=== PATIENT | male | born 1990 | race Caucasian/White ===

== ENCOUNTER → 2017-02-14 | Day surgery (SDC) | payer OTHER ==
--- NOTE | 2017-02-12 14:19 | MH ---
cc: THOMAS UGPTA M.D. DATE OF ADMISSION: 02/14/2017 DATE OF : 1990 CHIEF COMPLAINT Tonsil and adenoid hypertrophy. HISTORY OF PRESENT ILLNESS This is a 27-year-old male with a history of tonsil and adenoid hypertrophy. He has obstructive symptoms of sleep apnea. In office evaluation he had significant adenoid hypertrophy and very large tonsils and this has caused him obstruction. He has not improved with steroids and antibiotics. He is to undergo tonsillectomy and adenoidectomy. ALLERGIES No known drug allergies. PAST MEDICAL HISTORY 1. Chronic sinusitis. 2. Chronic tonsillitis. PHYSICAL EXAMINATION GENERAL: A well-developed, well-nourished male in no apparent distress. HEENT: Normocephalic, atraumatic. Extraocular motions intact. External ear canals clear. Lips, oral mucosa and pharynx show no lesion. Tonsils 3-4+ with erythema. Nasal exam confirms posterior nasal obstruction with adenoid hypertrophy. LUNGS: Clear to auscultation. HEART: Regular rate. ABDOMEN: Soft. EXTREMITIES: No lesion. NEUROLOGIC: Nonfocal. ASSESSMENT This is a 27-year-old male with tonsil and adenoid hypertrophy with obstruction. He has not responded to medical therapy. PLAN The plan is for tonsillectomy and adenoidectomy. The risks and benefits were discussed with the patient. The risks include but are not limited to those of anesthesia, bleeding, unfavorable scarring, velopharyngeal insufficiency, dehydration, depression, abscess, voice change, bleeding. In addition, the patient may have symptoms of sleep apnea or upper airway obstruction and the plan is to observe him following surgery and monitor him overnight if deemed appropriate by the anesthesia team and his post-op observation. The patient states he understands and accepts the risks of the procedure. MD BJ Maldonado/COY /1:53 PM /2:11 PM
[~2017-02-14] VITALS: Ht 185.4 cm; Wt 114.3 kg
[~2017-02-14] MED LIST: *RESP: ALBUTEROL 2.5 MG/3 ML NEB (PRN) PERIprocedural Use ONLY NEB ONE; *morphine SULFATE 8 MG/ML PERIprocedure ONLY ONE; ACETAMINOPHEN 325MG/HYDROcodone 7.5MG/15ML UDC PO PRN; CHLORHEXIDINE GLUCONATE 2 % 1 PACK (2 CLOTHS) TOPICAL PRN; DEXAMETHASONE SOD PHOS 4 MG/ML VIAL IV ONE; DEXMEDETOMIDINE HCL 200 MCG/2 ML VIAL ONE; DO NOT ADM ANY ANTICOAGULANT DRUGS PRN; INSULIN HUMAN REGULAR 1,000 UNITS/10 ML VIAL SQ PRN; LACTATED RINGER'S 1000 ML IV PRN; LIDOCAINE HCL 1% PF 5 ML AMPULE OTHER ONE; METOPROLOL TARTRATE 25 MG TAB PO PRN; MIDAZOLAM HCL 2 MG/2 ML VIAL IV ONE; MORPHINE SULFATE 4 MG/ML INJ IV PRN; ONDANSETRON HCL 4 MG/2 ML VIAL IV PRN; ONDANSETRON HCL 4 MG/2 ML VIAL IV PUSH ONE; POVIDONE IODINE 5% (ANTISEPSIS KIT) 4 APPLICATIONS EACH NARE PRN; PROPOFOL 200 MG/20 ML AMP IV ONE; SODIUM CHLORID 0.9% 500 ML IV PRN; SUCCINYLCHOLINE CHLORIDE 100 MG/5 ML SYRINGE IV PUSH ONE; ceFAZolin 1,000 MG/NS 100 ML IV SCH
[2017-02-14 07:59] LABS: AUTOMATED NEUTROPHIL # 5.9 TH/MM3 (1.8-7.7); BASOPHIL % 0.4 % (0.0-2.0); EOSINOPHIL # 0.2 TH/MM3 (0-0.4); EOSINOPHIL % 2.7 % (0.0-4.0); HEMATOCRIT 44.8 % (39.0-51.0); HEMO FLAGS DIFF FINAL; LYMPH % 21.7 % (9.0-44.0); MEAN CELL VOLUME 93.6 FL (80.0-100.0); MEAN CORPUSCULAR HGB CONC 35.2 % (32.0-36.0); MONO % 10.3 % (0.0-8.0); NEUT % 64.9 % (16.0-70.0); PLATELET COUNT 338 TH/MM3 (150-450); RED BLOOD COUNT 4.78 MIL/MM3 (4.50-5.90); RED CELL DISTRIBUTION WIDTH 12.2 % (11.6-17.2)
--- NOTE | 2017-02-14 10:49 | MP ---
cc: THOMAS GUPTA DATE OF SURGERY 02/14/2017 DATE OF 1990 INDICATIONS This is a 26-year male with tonsil and adenoid hypertrophy with obstruction. He has not responded to medical therapy. Plan is for tonsillectomy and adenoidectomy. PREOPERATIVE DIAGNOSIS Adenotonsillar hypertrophy, chronic current tonsillitis. POSTOPERATIVE DIAGNOSES Adenotonsillar hypertrophy, chronic current tonsillitis. PROCEDURE Tonsillectomy, adenoidectomy. SUMMARY The patient brought into the operating room, placed in the supine position, successfully placed under general anesthesia and prepared in the usual fashion for this procedure. The oral cavity exposed with a retractor. No submucous cleft. The right tonsil was removed with coblation technique superior and inferior. The left tonsil was removed in a similar fashion. Hemostasis was obtained in the tonsil beds. The adenoids were removed with coblation technique and tonsils were sent as specimens. The uvula was edematous and it was elected to remove that as part of the tonsillectomy and this was done with cautery. He tolerated this well. The patient was suctioned, retractors removed, he was awakened, extubated and taken to recovery in stable condition. MD BJ Maldonado/MONIQUE /10:29 AM /10:39 AM
[2017-02-14 12:15] VITALS: BP 123/75; PULSE 79; RESP 16; TEMP 97.8; O2SAT 98
== END | disposition home or self-care (01) ==
LOC: HSDC 07:06
PROVIDERS: ATTEND Specialist
DX: J35.3 Hypertrophy of tonsils with hypertrophy of adenoids (principal); J32.9 Chronic sinusitis, unspecified
CPT/HCPCS: 00170; 42821; 85025; 88304; 88305; 94664; J0330; J0690; J1100; J2250; J2270; J2405; J3010; J7120; J7613